=== PATIENT | female | born 1970 | race Caucasian/White ===

== ENCOUNTER 2017-09-11 12:02 | Day surgery (SDC) | payer OTHER ==
[2017-08-31 13:42] VITALS: BMI 35.0
[~2017-09-11] VITALS: Ht 157.5 cm; Wt 87.3 kg
[~2017-09-11 12:02] MED LIST: ATROPINE SULFATE 0.1 MG/ML 5ML SYR IV PRN; BACL10TA PO; CEFAZOLIN 2000 MG/60 ML D5W IV SCH; EpHEDrine SULFATE INJ 50 MG/ML AMP IV PRN; HYDROmorphone INJ 2 MG/ML SYR/VIAL IV PRN; LACTATED RINGER'S 1000ML 1,000 ML IV SCH; LORA-741 PO; ONDANSETRON INJ 2 MG/ML 2 ML VIAL IV PRN; PHENYLEPHRINE 100MCG/ML 5ML SYR IV PRN; PHT15 PO; PRLSR20 PO; SUMA50TA15 PO; VNTHFA/IN INH
--- NOTE | 2017-09-11 12:22 | History & Physical Bridge Note ---
H&P Re-Evaluation Bridge Note: I have examined the patient, reviewed the History & Physical and in the interval since the performance of the History & Physical I have noted the following changes of clinical significance: No changes noted
[2017-09-11 12:25] VITALS: BP 118/92; PULSE 78; TEMP 36.7; O2SAT 98; Ht 157.5 cm; Wt 87.3 kg
[2017-09-11] MEDS ORDERED: LIDOCAINE HCL 1% 20 ML VIAL ONE (14:19)
[2017-09-11] MEDS ORDERED: BUPIVACAINE 0.5 % 5 MG/1 ML MPF 30ML VIAL ONE (14:19)
[2017-09-11] MEDS ORDERED: PROPOFOL IV EMULSION 10 MG/ML 20 ML VIAL IV ONE (14:26)
[2017-09-11] MEDS ORDERED: ONDANSETRON INJ 2 MG/ML 2 ML VIAL ONE ×2 (14:26→15:41)
[2017-09-11] MEDS ORDERED: FENTANYL CITRATE INJ 50 MCG/1 ML 2 ML VIAL ONE ×2 (14:26→14:45)
[2017-09-11] MEDS ORDERED: DEXAMETHASONE SOD INJ 4 MG/ML VIAL ONE (14:26)
[2017-09-11] MEDS ORDERED: LIDOCAINE HCL 2% 2 ML VIAL (20MG/ML) ONE (14:26)
[2017-09-11] MEDS ORDERED: MIDAZOLAM HCL 1 MG/ML 2ML VIAL ONE (14:26)
[2017-09-11] MEDS ORDERED: DiphenhydrAMINE HCL 50 MG/ML VIAL ONE (15:25)
[2017-09-11] MEDS ORDERED: PHENYLEPHRINE HCL INJ 10 MG/ML VIAL ONE (15:25)
[2017-09-11] MEDS ORDERED: METOCLOPRAMIDE HCL INJ 5 MG/ML 2 ML VIAL ONE (15:25)
[2017-09-11] MEDS ORDERED: RANITIDINE HCL 25 MG/ML INJ ONE (15:25)
[2017-09-11] MEDS ORDERED: GLYCOPYRROLATE INJ 0.2 MG/ML VIAL ONE (15:27)
[2017-09-11] MEDS ORDERED: NEOSTIGMINE METHYLSULFATE 5 MG/5 ML SYR ONE (15:27)
[2017-09-11] MEDS ORDERED: OXYC-57 PO (16:22)
--- NOTE | 2017-09-11 16:23 | [facility] Operative Report ---
Operative Report Operative Date Sep 11, 2017. Pre-Operative Diagnosis Symptomatic Cholelithiasis Post-Operative Diagnosis same as preop Procedure(s) Performed Laparascopic Cholecystectomy Surgeon Nancy Harris MD Condenser Tube Tender Surgeon(s) Esther French PA-C Estimated Blood Loss 5mL Findings Normal appearing gallbladder and liver Fluids 1100cc Specimens A. Gallbladder and Contents Drains None Anesthesia GETA, 37ml 1% Lidocaine + 1/2% Marcaine (50/50 mix) Complication(s) None Disposition Recovery Room / PACU Indications Daphne Casillas is a 47 year old woman with symptomatic cholelithiasis. Indications , risks, benefits and potential complications of laparoscopic, possible open cholecystectomy, possible intraoperative cholangiogram were discussed at length with the patient. All questions answered to apparent satisfaction. Patient elected to proceed with surgery and freely signed the consent form. Description of Procedure Patient was brought to the operating room and identified as Daphne Casillas, . She was placed on the operating table in supine position. Anesthesia was induced, and patient was intubated without difficulty. A Time-Out was held , verifying correct patient, procedure, site, equipment available, pre op antibiotics, allergies, and personnel. A 12mm incision was made just inferior to the umbilicus and carried down through subcutaneous tissue. Fascia was encountered and two Bossman clamps were placed for upward traction. Fascia was incised using a scalpel to expose the peritoneum. Peritoneum was identified and elevated with two hemostats; peritoneum was incised using Metzenbaum scissors to enter the abdomen. A 12mm Mccabe port was placed, and insufflation established. A 10mm endoscope was placed and the abdomen explored. The patient was placed in reverse Trendelenberg position, and a 5mm port was placed under direct vision at sub-xiphoid. Two more 5mm ports were placed in the right abdomen a few centimeters below the costal margin. The dome of the gallbladder was grasped and retracted cranially. The neck of the gallbladder was grasped and retracted laterally to open up the area of dissection. The artery was clearly visible going to the gallbladder and running up the anterior surface. Overlying peritoneum and fat was gently dissected off the cystic duct and cystic artery. [place] graspers were used to fully dissect out the cystic duct circumferentially. The artery was found to be somewhat anterior to the duct; this was also dissected out circumferentially. The critical view of safety was clearly visualized with both structures leading only into the gallbladder, with liver visible between and behind the structures. The cystic artery was first clipped and cut. Next the cystic duct was clipped and cut. The gallbladder was then dissected off the liver using the hook electrocautery. Once completely liberated, the 10mm scope was traded out for a 5mm scope, which was inserted through the sub-xiphoid port. A 10mm Endocatch bag was inserted through the umbilical port, and the gallbladder was placed in the bag. The gallbladder was removed from the abdomen and passed off the field to be taken to pathology. The liver bed was irrigated and inspected for hemostasis. Hemostasis was achieved with electrocautery. The sponge and instrument counts were verified to be correct x 2 by the nurse in charge. Once hemostasis was verified, the abdomen was evacuated of irrigation fluid. Ports were removed under direct vision, and insufflation was released. Fascia at the umbilical incision was closed using 0 vicryl in interrupted fashion. Skin was closed using 4-0 monocryl, and Dermabond was applied. Patient was then awakened from anesthesia, extubated without difficulty, and was taken to PACU in stable condition, having suffered no untoward events. I attest to the content of the Intraoperative Record and any orders documented therein. Any exceptions are noted below.
--- NOTE | 2017-09-11 16:28 | Discharge Instructions ---
Discharge Instructions Date of Service Sep 11, 2017. Admission Reason for Admission: Symptomatic Cholelithiasis Discharge Discharge Diagnosis / Problem: same Discharge Goals Goal(s): Decrease discomfort, Improve function Activity Recommendations Activity Limitations: as noted below No heavy lifting over 20 pounds for 2 weeks or until cleared by surgeon No strenuous activity until cleared by surgeon No submerging incisions underwater for 2 weeks or until healed (no bathing, swimming, or hot tubs) no driving while taking narcotic pain medication or until you are pain free . Instructions / Follow-Up Instructions / Follow-Up you may shower in 24 hours Keep surgical glue on incisions, it will come off on its own Walking and light activity is encouraged Follow-up with Dr. Harris in 2 weeks, please call office at [phone] if you do not already have an appointment Current Hospital Diet Patient's current hospital diet: Discharge Diet Recommended Diet: Regular Diet Procedures Procedures Performed: Laparascopic Cholecystectomy Pending Studies Studies pending at discharge: yes List of pending studies: pathology will be reviewed at follow up visit Medical Emergencies . Who to Call and When: Medical Emergencies: If at any time you feel your situation is an emergency, please call 911 immediately. . Non-Emergent Contact Non-Emergency issues call your: Primary Care Provider, Surgeon Call Non-Emergent contact if: you have a fever, temperature is above 101.5, your pain is not controlled, your pain is worsening, wound has increased drainage, wound has increased redness, wound has increased pain . "Provider Documentation" section prepared by Esther French. . VTE Core Measure Inpt VTE Proph given/why not?: [facility] [place] Drug Monitoring Program Search Results: patient reviewed within database, no issues identified
[2017-09-11] MEDS ORDERED: MoRPHine SULFATE 2 MG/ML CARP IV PRN ×2 (16:30)
[2017-09-11] MEDS ORDERED: ONDANSETRON INJ 2 MG/ML 2 ML VIAL IV PRN (16:30)
[2017-09-11] MEDS ORDERED: OXYCODONE/ACETAMINOPHEN 5-325 TAB PO PRN ×2 (16:30)
[2017-09-11] MEDS ORDERED: MoRPHine SULFATE 4 MG/ML 1 ML CARP\\VIAL IV PRN (16:30)
[2017-09-11] MEDS: HYDROmorphone INJ 2 MG/ML SYR/VIAL IV PRN ×4 (16:32→17:00)
--- NOTE | 2017-09-11 16:59 | Anesthesiology Progress Note ---
Anesthesia Post Op Note Date & Time Sep 11, 2017 at 16:59 Vital Signs Pain Intensity: 6 Vital Signs Past 12 Hours Date Time Temp Pulse Resp B/P (MAP) Pulse Ox O2 Delivery O2 Flow Rate FiO2 09/11/17 16:56 117/77 09/11/17 16:55 71 16 100 09/11/17 16:55 69 16 09/11/17 16:51 123/79 09/11/17 16:50 63 12 100 09/11/17 16:50 62 12 09/11/17 16:46 123/89 09/11/17 16:45 64 16 09/11/17 16:45 64 16 100 09/11/17 16:41 134/76 09/11/17 16:40 63 13 09/11/17 16:40 63 13 100 09/11/17 16:36 127/76 09/11/17 16:35 63 17 09/11/17 16:35 62 17 100 09/11/17 16:31 122/81 09/11/17 16:30 63 15 09/11/17 16:30 62 15 100 09/11/17 16:25 67 14 105/70 100 09/11/17 16:25 66 14 09/11/17 16:25 36.2 71 12 105/70 100 Oxymask 10 09/11/17 12:25 36.7 78 16 118/92 (101) 98 Room Air Notes Mental Status: alert / awake / arousable, participated in evaluation Pt Amnestic to Procedure: Yes Nausea / Vomiting: adequately controlled Pain: adequately controlled Airway Patency, RR, SpO2: stable & adequate BP & HR: stable & adequate Hydration State: stable & adequate Anesthetic Complications: no major complications apparent
[2017-09-11 17:22] VITALS: BP 114/63; PULSE 65; TEMP 36.5; O2SAT 97
[2017-09-11 17:51] VITALS: BP 113/74; PULSE 66; O2SAT 98
[2017-09-11 18:25] VITALS: BP 119/80; PULSE 76; TEMP 37.3; O2SAT 98
== END 2017-09-11 19:00 | disposition home or self-care (01) ==
LOC: C.ACU 12:02
PROVIDERS: ATTEND Student in an Organized Health Care Education/Training Program
DX: K80.20 Calculus of gallbladder without cholecystitis without obstruction (principal); J45.909 Unspecified asthma, uncomplicated; G47.33 Obstructive sleep apnea (adult) (pediatric); Z85.3 Personal history of malignant neoplasm of breast; Z90.13 Acquired absence of bilateral breasts and nipples; Z98.890 Other specified postprocedural states; Z80.9 Family history of malignant neoplasm, unspecified; Z83.3 Family history of diabetes mellitus; Z82.49 Family history of ischemic heart disease and other diseases of the circulatory system; Z83.49 Family history of other endocrine, nutritional and metabolic diseases; Z80.8 Family history of malignant neoplasm of other organs or systems